=== PATIENT | male | born 1955 | race Caucasian/White ===

== ENCOUNTER 2017-04-21 17:00 | Emergency (ER) | payer SELFPAY ==
--- NOTE | 2017-04-21 23:57 | ER ---
SUBJECTIVE: A 61-year-old gentleman who was seen in the ER. Has been visiting [place] from the [place] area and was heading out [place] [facility]. Got [place] of the ice house onto [place] [address], fell and hit the occipital area of his head on the flat surface of the ice road. States he did not lose consciousness. Says he felt a little shocky when it happened, however, has had no serious effects other than good laceration on the back of his head. Was accompanied by a friend and the friend brought him into the emergency room because of the copious amount of bleeding from the back of his head. PAST MEDICAL HISTORY: Per the patient's report is noncontributory. States he takes no medications and has no known medication allergies. SOCIAL HISTORY: He is employed in [place]. He is a nonsmoker. Social alcohol usage. OBJECTIVE DATA: VITAL SIGNS: 134/86, 72, and 16. GENERAL: Adequately groomed, 61-year- old gentleman, alert and oriented with exam. HEENT: Pupils are equal and reactive bilaterally. Grasp is equal bilaterally. Inspection of the scalp reveals a 2.25 cm very straight laceration to the occipital area, just left of midline. The bleeding has pretty much stopped by the time he is seen here in the ER. NEUROLOGIC: He is completely appropriate. Alert and oriented to person, place, and time. Moves all extremities within normal limits. Head x-ray come reveals nothing, no bony acute fracture. ASSESSMENT: A 2.25 cm laceration, left occipital area, left of midline. PLAN: Area is cleansed with Hibiclens. Injected with 1% of xylocaine with epi. Five interrupted 3-0 Ethilon sutures are placed. Good closure is obtained. No bleeding after wound closure. Area is cleansed again and 4 x 4 with bacitracin is placed over the incision. Kerlix is wrapped around the patient's head. Instructed to leave the dressing intact to his scalp for the next 48 hours. We will remove it at that time, and if he does shower, ask him to shampoo gently around that area. DISCHARGE INSTRUCTIONS: Leave incision clean and dry for 48 hours. Can shampoo as usual after that time, however, using caution around the laceration area. Should abstain from alcohol for the next 24 hours. Should he note any nausea, vomiting, vision disturbances, or cognitive changes, followup at any time here in the ER. Wished him a good safe fishing adventure for the next 2 days. ANGELIQUE/GENESIS /[id number]
--- NOTE | 2017-04-22 17:22 | CR ---
DATE OF SERVICE: 04/21/17 CLINICAL DATA: FELL SKULL SERIES: No priors. No evidence of fracture. No lytic or blastic bone lesions. The paranasal sinuses appear clear. [id number] [facility]
== END 2017-04-21 18:20 | disposition home or self-care (01) ==
LOC: LB.ED 17:00
DX: S01.01XA Laceration without foreign body of scalp, initial encounter (principal); W18.00XA Striking against unspecified object with subsequent fall, initial encounter
CPT/HCPCS: 12001; 70260; 99283-25